=== PATIENT | male | born 1960 ===

== ENCOUNTER 2022-05-05 11:15 | Inpatient (IN) ==
[2022-05-05 12:02] LABS: Basophils % 0.5 % (0.0-0.8); Eosinophils # 0.3 10*3/uL (0.0-0.87); Eosinophils % 3.6 % (0.00-10.9); Hematocrit 44.5 VOL% (42.0-52.0); Hemoglobin 15.1 GM/DL (14.0-18.0); Immature Granulocytes % 0.6 %; Immature Granulocytes Absolute 0.05 #; Lymphocytes # 1.1 10*3/uL (1.4-4.0); Lymphocytes % 12.4 % (21.2-54.2); Mean Corpuscular HGB Conc 33.9 GM/DL (32-36); Mean Corpuscular Volume 92.1 FL (87-102); Mean Platelet Volume 9.8 FL (9.6-12.0); Monocytes # 0.7 10*3/uL (0.11-0.8); Monocytes % 7.8 % (1.7-12.7); Neutrophils % 75.1 % (38.7-73.9); Platelet Count 265 T/CUMM (130-400); Red Blood Count 4.83 MC/CUMM (3.8-5.5); Red Cell Distribution Width 12.6 % (9.3-17.3); White Blood Count 8.8 T/CUMM (4-12)
[2022-05-05 12:11] LABS: INR 1.1; PT Patient Result 11.6 SECS (10.5-12.0)
[2022-05-05 12:19] LABS: Albumin 2.7 G/DL (3.4-5.0); Bilirubin,Total 0.6 MG/DL (0.20-1.00); Osmolality,Calculated 277.1 MOS/KG (273-304); Total Protein 8.4 G/DL (6.4-8.2)
[2022-05-05] MEDS ORDERED: VANCOMYCIN INJ 1,000 MG in SODIUM CHLORIDE 0.9% 250 ML IV STA (12:57)
[2022-05-05] MEDS ORDERED: LEVOFLOXACIN INJ 750 MG/150 ML PREMIX IV STA (12:57)
[2022-05-05] MEDS ORDERED: LACTULOSE 20 GM/30 ML UDCUP PO PRN (13:43)
[2022-05-05] MEDS ORDERED: GLUCAGON 1 MG VIAL IM PRN ×2 (13:43→15:47)
[2022-05-05] MEDS ORDERED: DEXTROSE 10% 250 ML BAG IV PRN ×2 (13:43→15:51)
[2022-05-05] MEDS ORDERED: ONDANSETRON 4 MG/2 ML VIAL IV PRN (13:43)
[2022-05-05] MEDS ORDERED: hydrALAZINE 20 MG/1 ML VIAL IV PRN (13:43)
[2022-05-05] MEDS ORDERED: DOCUSATE SODIUM 100 MG CAPSULE PO PRN (13:43)
[2022-05-05] MEDS ORDERED: ACETAMINOPHEN 325 MG TABLET PO PRN (13:43)
[2022-05-05] MEDS ORDERED: ALUMINUM/MAGNES/SIMETH MAX STR 30 ML UDCUP PO PRN (13:43)
[2022-05-05] MEDS ORDERED: HYDROmorphone 1 MG/1 ML SYRINGE IV PRN (15:48)
[2022-05-05] MEDS: PIPERACILLIN/TAZOBACTAM 3,375 MG in SODIUM CHLORIDE 0.9% 100 ML IV SCH ×2 (16:00→21:23)
[2022-05-05] MEDS ORDERED: VANCOMYCIN INJ 1,000 MG in SODIUM CHLORIDE 0.9% 250 ML IV ONE (16:00)
[2022-05-05] MEDS: LACTATED RINGERS 1,000 ML IV SCH (16:00)
[2022-05-05] MEDS: INSULIN LISPRO 100 UNIT/ML SUBCUT SCH ×2 (17:17→21:23)
[2022-05-06 05:20] LABS: Basophils % 0.5 % (0.0-0.8); Eosinophils # 0.4 10*3/uL (0.0-0.87); Eosinophils % 5.1 % (0.00-10.9); Hematocrit 40.2 VOL% (42.0-52.0); Hemoglobin 13.5 GM/DL (14.0-18.0); Immature Granulocytes % 0.5 %; Immature Granulocytes Absolute 0.04 #; Mean Corpuscular HGB Conc 33.6 GM/DL (32-36); Mean Corpuscular Volume 92.8 FL (87-102); Mean Platelet Volume 9.8 FL (9.6-12.0); Monocytes # 0.7 10*3/uL (0.11-0.8); Monocytes % 9.2 % (1.7-12.7); Neutrophils % 71.7 % (38.7-73.9); Platelet Count 272 T/CUMM (130-400); Red Blood Count 4.33 MC/CUMM (3.8-5.5); Red Cell Distribution Width 12.5 % (9.3-17.3); White Blood Count 7.9 T/CUMM (4-12)
[2022-05-06] MEDS: PIPERACILLIN/TAZOBACTAM 3,375 MG in SODIUM CHLORIDE 0.9% 100 ML IV SCH ×3 (05:22→21:56)
[2022-05-06] MEDS: VANCOMYCIN INJ 2,000 MG in SODIUM CHLORIDE 0.9% 500 ML IV SCH ×2 (05:22→16:40)
[2022-05-06 05:41] LABS: Albumin 2.1 G/DL (3.4-5.0); Bilirubin,Total 0.5 MG/DL (0.20-1.00); Calcium 8.1 MG/DL (8.5-10.1); Osmolality,Calculated 282.7 MOS/KG (273-304); Potassium 4.1 MMOL/L (3.5-5.1); Risk Ratio 3.32; Total Protein 6.9 G/DL (6.4-8.2); VLDL Cholesterol 20.6 MG/DL
[2022-05-06] MEDS: INSULIN LISPRO 100 UNIT/ML SUBCUT SCH ×4 (08:48→21:56)
[2022-05-06] MEDS ORDERED: Semaglutide [Ozempic] 0.25 mg or 0.5 mg(2 mg/1.5 mL) Pen Injecto SUBCUT SCH (09:00)
[2022-05-06] MEDS: PANTOPRAZOLE 40 MG TABLET PO SCH (10:39)
[2022-05-06] MEDS ORDERED: fentaNYL 100 MCG/2 ML VIAL ONE (13:13)
[2022-05-06] MEDS ORDERED: MIDAZOLAM 2 MG/2 ML VIAL ONE (13:13)
[2022-05-06] MEDS ORDERED: DEXMEDETOMIDINE 200 MCG/2 ML VIAL ONE (13:13)
[2022-05-06] MEDS ORDERED: LIDOCAINE 2% 5 ML VIAL ONE (13:13)
[2022-05-06] MEDS ORDERED: propofoL 200 MG/20 ML VIAL IV ONE (13:13)
[2022-05-06] MEDS ORDERED: KETAMINE 500 MG/10 ML VIAL ONE (13:14)
[2022-05-06] MEDS ORDERED: BUPIVACAINE MPF 0.25% 10 ML VIAL ONE (13:15)
[2022-05-06] MEDS ORDERED: LACTATED RINGERS 1,000 ML IV SCH (13:30)
[2022-05-06 16:00] LABS: Arterial Base Excess iSTAT -1 MMOL/L (-2.5-2.5); Arterial Bicarbonate iSTAT 23.6 MMOL/L (20-26); Arterial O2 Saturation iSTAT 93 % (95-100); Arterial PCO2 iSTAT 39 MM HG (35-48); Arterial PO2 iSTAT 68 MM HG (80-95); Arterial Total CO2 iSTAT 25 MMO/L (23-27); Arterial pH iSTAT 7.387 (7.35-7.45)
[2022-05-06] MEDS ORDERED: GLUCAGON 1 MG VIAL IM PRN (16:50)
[2022-05-06] MEDS ORDERED: DEXTROSE 50% 25 GM/50 ML VIAL IV PRN (16:50)
[2022-05-06] MEDS ORDERED: INSULIN GLARGINE 100 UNIT/ML SUBCUT SCH (21:00)
[2022-05-07] MEDS: PIPERACILLIN/TAZOBACTAM 3,375 MG in SODIUM CHLORIDE 0.9% 100 ML IV SCH (04:50)
[2022-05-07] MEDS: VANCOMYCIN INJ 2,000 MG in SODIUM CHLORIDE 0.9% 500 ML IV SCH (04:50)
[2022-05-07 06:06] LABS: Basophils % 0.5 % (0.0-0.8); Eosinophils # 0.4 10*3/uL (0.0-0.87); Eosinophils % 5.2 % (0.00-10.9); Hematocrit 40.9 VOL% (42.0-52.0); Hemoglobin 13.5 GM/DL (14.0-18.0); Immature Granulocytes % 0.5 %; Immature Granulocytes Absolute 0.04 #; Lymphocytes # 1.2 10*3/uL (1.4-4.0); Lymphocytes % 14.9 % (21.2-54.2); Mean Platelet Volume 10.3 FL (9.6-12.0); Monocytes # 0.6 10*3/uL (0.11-0.8); Monocytes % 7.8 % (1.7-12.7); Neutrophils % 71.1 % (38.7-73.9); Platelet Count 246 T/CUMM (130-400); Red Blood Count 4.35 MC/CUMM (3.8-5.5); Red Cell Distribution Width 12.4 % (9.3-17.3); White Blood Count 7.9 T/CUMM (4-12)
[2022-05-07 06:18] LABS: Calcium 8.5 MG/DL (8.5-10.1)
[2022-05-07] MEDS: MULTIVITAMIN (CENTRUM) TABLET PO SCH (09:31)
[2022-05-07] MEDS: PANTOPRAZOLE 40 MG TABLET PO SCH (09:31)
[2022-05-07] MEDS: INSULIN LISPRO 100 UNIT/ML SUBCUT SCH ×4 (09:32→21:32)
[2022-05-07 14:55] LABS: Hematocrit 40.1 VOL% (42.0-52.0); Hemoglobin 13.5 GM/DL (14.0-18.0)
[2022-05-07] MEDS: AMPICILLIN/SULBACTAM 3,000 MG in SODIUM CHLORIDE 0.9% 100 ML IV SCH ×2 (15:23→21:32)
[2022-05-07] MEDS: LACTATED RINGERS 1,000 ML IV SCH (16:57)
[2022-05-07] MEDS ORDERED: INSULIN GLARGINE 100 UNIT/ML SUBCUT SCH (21:00)
[2022-05-08] MEDS: AMPICILLIN/SULBACTAM 3,000 MG in SODIUM CHLORIDE 0.9% 100 ML IV SCH ×2 (06:15→15:19)
[2022-05-08 08:56] LABS: Basophils % 0.5 % (0.0-0.8); Eosinophils # 0.4 10*3/uL (0.0-0.87); Eosinophils % 4.8 % (0.00-10.9); Hemoglobin 14.4 GM/DL (14.0-18.0); Immature Granulocytes % 0.7 %; Immature Granulocytes Absolute 0.05 #; Lymphocytes # 1.4 10*3/uL (1.4-4.0); Lymphocytes % 18.1 % (21.2-54.2); Mean Corpuscular HGB Conc 33.5 GM/DL (32-36); Mean Corpuscular Volume 93.3 FL (87-102); Mean Platelet Volume 9.8 FL (9.6-12.0); Monocytes # 0.4 10*3/uL (0.11-0.8); Monocytes % 5.6 % (1.7-12.7); Neutrophils % 70.3 % (38.7-73.9); Platelet Count 333 T/CUMM (130-400); Red Blood Count 4.61 MC/CUMM (3.8-5.5); Red Cell Distribution Width 12.7 % (9.3-17.3); White Blood Count 7.6 T/CUMM (4-12)
[2022-05-08 09:14] LABS: Osmolality,Calculated 277.7 MOS/KG (273-304); Potassium 4.3 MMOL/L (3.5-5.1)
[2022-05-08] MEDS: INSULIN LISPRO 100 UNIT/ML SUBCUT SCH ×4 (09:21→12:08)
[2022-05-08] MEDS: PANTOPRAZOLE 40 MG TABLET PO SCH (09:23)
[2022-05-08] MEDS: MULTIVITAMIN (CENTRUM) TABLET PO SCH (09:23)
[2022-05-08 11:41] VITALS: BP 120/65
== END 2022-05-08 14:50 | disposition home or self-care (01) | DRG 240 ==
LOC: N.ED 11:15 → SUATTDRO 13:43 → N.EDINP 13:43 → N.3E 14:46
PROVIDERS: ADMIT Internal Medicine; ATTEND Internal Medicine